=== PATIENT | female | born 1960 | race Caucasian/White ===

== ENCOUNTER → 2024-04-03 09:07 | Outpatient (REF) | payer OTHER, SELFPAY | LOC: WDC 09:07 | PROVIDERS: ATTENDING PHYSICIAN Nurse Practitioner | DX: Z12.31 Encounter for screening mammogram for malignant neoplasm of breast (principal) | CPT/HCPCS: 77063; 77067 ==

== ENCOUNTER → 2025-04-05 08:01 | Outpatient (REF) | payer OTHER, SELFPAY | LOC: WDC 08:01 | PROVIDERS: ATTENDING PHYSICIAN Nurse Practitioner | DX: Z12.31 Encounter for screening mammogram for malignant neoplasm of breast (principal) | CPT/HCPCS: 77063; 77067 ==

== ENCOUNTER 2025-07-19 06:22 | Day surgery (SDC) | payer OTHER, SELFPAY | END 2025-07-19 12:47 | disposition home or self-care (01) | LOC: GI 06:22 | PROVIDERS: ATTENDING PHYSICIAN Internal Medicine Gastroenterology; FAMILY PHYSICIAN Nurse Practitioner | DX: Z12.11 Encounter for screening for malignant neoplasm of colon (principal); K57.30 Diverticulosis of large intestine without perforation or abscess without bleeding; K21.9 Gastro-esophageal reflux disease without esophagitis; R11.2 Nausea with vomiting, unspecified; Z98.84 Bariatric surgery status | CPT/HCPCS: 45380; 43239; 88305; 88342 ==